=== PATIENT | female | born 1990 | race African-American/Black ===

== ENCOUNTER 2016-11-28 05:22 | Emergency (ER) | payer OTHER ==
[~2016-11-28] VITALS: Ht 162.6 cm; Wt 54.4 kg
[~2016-11-28 05:22] MED LIST: CLEOCIN HCL300 MG PO; IBUPROFEN 600600 M1 PO; NORCO 5-325 TA1 EACH PO; PENICILLIN V P500 MG PO; PENICILLIN VK500 M1 PO; TRAMADOL 50 MG50 MG PO
[2016-11-28 05:29] VITALS: BP 128/87
[2016-11-28] MEDS ORDERED: AMOXICILLIN 50500 M1 PO (05:39)
[2016-11-28] MEDS ORDERED: NAPROSYN500 MG PO (05:39)
== END 2016-11-28 06:01 | disposition home or self-care (01) ==
LOC: ER 05:22
DX: K02.9 Dental caries, unspecified (principal)

== ENCOUNTER 2016-12-07 18:09 | Emergency (ER) | payer OTHER ==
[~2016-12-07] VITALS: Ht 162.6 cm; Wt 54.4 kg
[~2016-12-07 18:09] MED LIST changes: +AMOXICILLIN 50500 M1 PO; +NAPROSYN500 MG PO
[2016-12-07 18:11] VITALS: BP 110/77
[2016-12-07] MEDS ORDERED: PENICILLIN V P500 MG PO (18:19)
[2016-12-07] MEDS ORDERED: MOBIC15 MG PO (18:19)
== END 2016-12-07 18:51 | disposition home or self-care (01) ==
LOC: ER 18:09
DX: K08.89 Other specified disorders of teeth and supporting structures (principal)

== ENCOUNTER 2018-10-07 16:30 | Emergency (ER) | payer OTHER ==
[~2018-10-07] VITALS: Ht 162.6 cm; Wt 56.7 kg
[2018-10-07 16:30] VITALS: BP 102/71
[~2018-10-07 16:30] MED LIST changes: +MOBIC15 MG PO
[2018-10-07] MEDS ORDERED: MOBIC7.5 MG PO (16:48)
[2018-10-07] MEDS ORDERED: ULTRAM 50MG TAB50 MG PO (16:48)
[2018-10-07] MEDS ORDERED: PENICILLIN V P500 MG PO (16:48)
== END 2018-10-07 17:08 | disposition home or self-care (01) ==
LOC: ER 16:30
DX: K08.89 Other specified disorders of teeth and supporting structures (principal); R51 Headache